=== PATIENT | male | born 1960 | race African-American/Black ===

== ENCOUNTER 2022-12-09 14:00 | Emergency (ER) | payer OTHER ==
[~2022-12-09] VITALS: Ht 175.3 cm; Wt 95.0 kg
[2022-12-09] MEDS ORDERED: KETOROLAC 60MG/2ML VIAL IM ONE (15:00)
[2022-12-09 16:08] VITALS: BP 131/77
[2022-12-09] MEDS ORDERED: TRAMADOL 50MG TABLET PO ONE (16:45)
[2022-12-09] MEDS ORDERED: IBUP-2028 MT (18:39)
[2022-12-09] MEDS ORDERED: TRAM50TA3 PO (18:41)
== END 2022-12-09 19:03 | disposition home or self-care (01) ==
LOC: ER 14:00
DX: G89.29 Other chronic pain (principal); M54.9 Dorsalgia, unspecified; I10 Essential (primary) hypertension; E78.00 Pure hypercholesterolemia, unspecified
CPT/HCPCS: 72100; 96372; 99283; J1885